=== PATIENT | female | born 1960 | race Hispanic/Latino ===

== ENCOUNTER 2019-08-20 13:42 | Emergency (ER) | payer SELFPAY ==
[2019-08-20 14:37] LABS: Absolute Lymphocytes (CBC) 2.2 K/uL (0.7-4.9); Basophils % 0.3 % (0-1.3); Hematocrit 39.7 % (36.0-45.0); Lymphocytes % 22.9 % (15.3-44.8); MPV 9.8 fL (7.6-11.3)
[2019-08-20 14:50] LABS: ALT/SGPT 25 U/L (12-78); AST/SGOT 15 U/L (15-37); Albumin 3.7 g/dL (3.4-5.0); Alkaline Phosphatase 112 U/L (45-117); BUN Blood Urea Nitrogen 14 mg/dL (7-18); Bicarbonate 25 mmol/L (21-32); Bilirubin Direct < 0.1 mg/dL (0-0.2); Bilirubin Total 0.3 mg/dL (0.2-1.0); Glucose Level 144 mg/dL (74-106); Lipase 105 U/L (73-393); Protein, Total 7.9 g/dL (6.4-8.2); Sodium Level 141 mmol/L (136-145)
[2019-08-20] MEDS ORDERED: NA CHLORIDE 0.9% 1,000 ML ONE (15:09)
[2019-08-20] MEDS ORDERED: FENTANYL CITR 100 MCG/2 ML ONE (15:09)
--- NOTE | 2019-08-20 15:19 | RAD REPORT ---
EXAM DESCRIPTION: CTAbdomen Pelvis W Contrast - 08/20/2019 3:05 pm CLINICAL HISTORY: Abdominal pain. ABD PAIN COMPARISON: No comparisons TECHNIQUE: Biphasic CT imaging of the abdomen and pelvis was performed with 100 ml non-ionic IV cont rast. All CT scans are performed using dose optimization technique as appropriate and may include automated exposure control or mA/KV adjustment according to patient size. FINDINGS: The lung bases are clear. The liver, spleen, pancreas, adrenal glands and kidneys are within normal limits. No bowel obstruction, free air, free fluid or abscess. Small fat containing umbilical hernia. The nita endix is normal. No evidence of significant lymphadenopathy. No suspicious bony findings. Tiny air bubbles noted in the urinary bladder. IMPRESSION: No acute intra-abdominal or pelvic finding. No evidence of appendicitis. Tiny urinary bladder air bubbles. Suggest correlation clinically for possible cystitis.
--- NOTE | 2019-08-20 16:03 | EDPHYS ---
Physician Documentation [facility] Name: Kenia Greenberg Age: 59 yrs Sex: Female : 1960 Arrival Date: 08/20/2019 Time: 13:46 Bed 15 Private MD: ED Physician Dayo Harvey HPI: 08/19 14:01 This 59 yrs old Female presents to ER via Ambulatory with complaints of snw Abdominal Pain. 14:01 The patient presents with abdominal pain in the lower abdomen. Onset: The snw symptoms/episode began/occurred acutely, 3 day(s) ago, and became persistent. The symptoms do not radiate. Associated signs and symptoms: Pertinent positives: nausea. The symptoms are described as steady. Severity of pain: At its worst the pain was moderate. The patient has been recently seen by a physician: the patient's primary care provider, with similar presenting complaints, and apparently given a diagnosis of Abd pain, sent to ED for eval for appendicitis. Historical: - Allergies: 14:02 No Known Allergies; ls4 - Immunization history:: Adult Immunizations up to date. - Social history:: Smoking status: Patient denies any tobacco usage or history of. ROS: 14:01 Constitutional: Negative for fever, chills, and weight loss, Eyes: Negative for injury, snw pain, redness, and discharge, ENT: Negative for injury, pain, and discharge, Neck: Negative for injury, pain, and swelling, Cardiovascular: Negative for chest pain, palpitations, and edema, Respiratory: Negative for shortness of breath, cough, wheezing, and pleuritic chest pain, Back: Negative for injury and pain, : Negative for injury, bleeding, discharge, and swelling, MS/Extremity: Negative for injury and deformity, Skin: Negative for injury, rash, and discoloration, Neuro: Negative for headache, weakness, numbness, tingling, and seizure. 14:01 Abdomen/GI: Positive for abdominal pain. Exam: 14:00 Constitutional: This is a well developed, well nourished patient who is awake, alert, snw and in no acute distress. Head/Face: Normocephalic, atraumatic. Eyes: Pupils equal round and reactive to light, extra-ocular motions intact. Lids and lashes normal. Conjunctiva and sclera are non-icteric and not injected. Cornea within normal limits. Periorbital areas with no swelling, redness, or edema. ENT: Nares patent. No nasal discharge, no septal abnormalities noted. Tympanic membranes are normal and external auditory canals are clear. Oropharynx with no redness, swelling, or masses, exudates, or evidence of obstruction, uvula midline. Mucous membranes moist. Neck: Trachea midline, no thyromegaly or masses palpated, and no cervical lymphadenopathy. Supple, full range of motion without nuchal rigidity, or vertebral point tenderness. No Meningismus. Chest/axilla: Normal chest wall appearance and motion. Nontender with no deformity. No lesions are appreciated. Cardiovascular: Regular rate and rhythm with a normal S1 and S2. No gallops, murmurs, or rubs. Normal PMI, no JVD. No pulse deficits. Respiratory: Lungs have equal breath sounds bilaterally, clear to auscultation and percussion. No rales, rhonchi or wheezes noted. No increased work of breathing, no retractions or nasal flaring. Back: No spinal tenderness. No costovertebral tenderness. Full range of motion. Skin: Warm, dry with normal turgor. Normal color with no rashes, no lesions, and no evidence of cellulitis. MS/ Extremity: Pulses equal, no cyanosis. Neurovascular intact. Full, normal range of motion. Neuro: Awake and alert, GCS 15, oriented to person, place, time, and situation. Cranial nerves II-XII grossly intact. Motor strength 5/5 in all extremities. Sensory grossly intact. Cerebellar exam normal. Normal gait. Psych: Awake, alert, with orientation to person, place and time. Behavior, mood, and affect are within normal limits. 14:00 Abdomen/GI: Inspection: abdomen appears normal, obese Bowel sounds: normal, Palpation: moderate abdominal tenderness, in the right lower quadrant and left lower quadrant. Vital Signs: 14:25 BP 126 / 70; Pulse 80; Resp 16; Temp 97.6(TE); Pulse Ox 98% ; lt1 MDM: 13:57 Patient medically screened. snw 16:08 Data reviewed: vital signs, nurses notes, lab test result(s), radiologic studies, CT snw scan. Data interpreted: Pulse oximetry: on room air is 98 %. Interpretation: normal. Counseling: I had a detailed discussion with the patient and/or guardian regarding: the historical points, exam findings, and any diagnostic results supporting the discharge/admit diagnosis, lab results, radiology results, the need for outpatient follow up, to return to the emergency department if symptoms worsen or persist or if there are any questions or concerns that arise at home. Special discussion: Based on the patient's Hx, exam, and Dx evaluation, there is no indication for emergent surgery or inpatient Tx. It is understood by the patient/guardian that if the Sx's persist or worsen they need to return immediately for re-evaluation. Based on the history and exam findings, there is no indication for further emergent testing or inpatient evaluation. I discussed with the patient/guardian the need to see the primary care provider for further evaluation of the symptoms. 08/19 14:00 Order name: Basic Metabolic Panel; Complete Time: 15:23 w 08/19 14:00 Order name: CBC with Diff; Complete Time: 15:23 w 08/19 14:00 Order name: Creatinine for Radiology; Complete Time: 15:23 w 08/19 14:00 Order name: Hepatic Function; Complete Time: 15:23 w 08/19 14:00 Order name: Lipase; Complete Time: 15:23 08/19 15:49 Order name: Urine Culture 08/19 14:00 Order name: IV Saline Lock; Complete Time: 14:18 w 08/19 14:00 Order name: Labs collected and sent; Complete Time: 14:18 w 08/19 14:00 Order name: CT Abd/Pelvis - IV Contrast Only; Complete Time: 15:23 08/19 15:49 Order name: Misc. Order: change IVF rate to bolus; Complete Time: 15:59 snw Administered Medications: 15:21 Drug: NS 0.9% 1000 ml Route: IV; Rate: 125 ml/hr; Site: left antecubital; ca1 15:22 Drug: fentaNYL (PF) 25 mcg {Note: RASS - 0.} Route: IVP; Site: left antecubital; ca1 15:52 Follow up: Response: No adverse reaction; Marked relief of symptoms ls4 16:04 Drug: Rocephin 1 grams Route: IV; Rate: calculated rate; Site: left antecubital; ls4 Disposition: 18:26 Co-signature as Attending Physician, Dayo Harvey MD. rn Disposition: 08/20/19 16:02 Discharged to Home. Impression: Urinary tract infection, site not specified. - Condition is Stable. - Discharge Instructions: Abdominal Pain, Adult, Urinary Tract Infection, Adult, Rehydration, Adult. - Prescriptions for Augmentin 875- 125 mg Oral Tablet - take 1 tablet by ORAL route every 12 hours for 10 days; 20 tablet. promethazine 25 mg Oral Tablet - take 1 tablet by ORAL route every 6 hours As needed; 20 tablet. - Medication Reconciliation Form, Thank You Letter, Antibiotic Education, Prescription Opioid Use form. - Follow up: Private Physician; When: 2 - 3 days; Reason: Recheck today's complaints, Continuance of care, Re-evaluation by your physician. Follow up: Emergency Department; When: As needed; Reason: Recheck today's complaints, Continuance of care, Re-evaluation by your physician. Signatures: Dispatcher [employer] EDMS Karla Saldaña, MIDWIFE-C MIDWIFE-Csnw Dayo Harvey MD MD rn Park Matta RN RN ls4 Marita Ruffin RN RN ca1 Corrections: (The following items were deleted from the chart) 17:19 16:02 08/20/2019 16:02 Discharged to Home. Impression: Urinary tract infection, site ls4 not specified. Condition is Stable. Forms are Medication Reconciliation Form, Thank You Letter, Antibiotic Education, Prescription Opioid Use. Follow up: Private Physician; When: 2 - 3 days; Reason: Recheck today's complaints, Continuance of care, Re-evaluation by your physician. Follow up: Emergency Department; When: As needed; Reason: Recheck today's complaints, Continuance of care, Re-evaluation by your physician. snw
--- NOTE | 2019-08-20 16:03 | ER ---
Nurse's Notes [facility] Name: Kenia Greenberg Age: 59 yrs Sex: Female : 1960 Arrival Date: 08/20/2019 Time: 13:46 Bed 15 Private MD: Diagnosis: Urinary tract infection, site not specified Presentation: 08/19 13:59 Chief complaint: Patient states: WAS SENT FROM [facility] WITH ACUTE ABDOMINAL ls4 RULE OUT APPENDICITIS. Coronavirus screen: Proceed with normal triage. Patient denies a cough. Patient denies shortness of breath or difficulty breathing. Patient denies measured and/or subjective temperature greater than 100.4F prior to today's visit. Patient denies travel on a cruise ship or to a country the [facility] currently lists as an affected area. Patient denies contact with known and/or suspected case of COVID-19. Ebola Screen: No symptoms or risks identified at this time. Initial Sepsis Screen: Does the patient meet any 2 criteria? No. Patient's initial sepsis screen is negative. Does the patient have a suspected source of infection? No. Patient's initial sepsis screen is negative. Risk Assessment: Do you want to hurt yourself or someone else? Patient reports no desire to harm self or others. Onset of symptoms is unknown. Care prior to arrival: None. Activity prior to arrival: None. 13:59 Method Of Arrival: Ambulatory ls4 13:59 Acuity: TRACY 3 ls4 Triage Assessment: 14:02 General: Appears in no apparent distress. comfortable, Behavior is calm, cooperative. ls4 Historical: - Allergies: 14:02 No Known Allergies; ls4 - Immunization history:: Adult Immunizations up to date. - Social history:: Smoking status: Patient denies any tobacco usage or history of. Screenin:04 Abuse screen: Denies threats or abuse. Denies injuries from another. Nutritional ls4 screening: No deficits noted. Tuberculosis screening: No symptoms or risk factors identified. Fall Risk None identified. Vital Signs: 14:25 BP 126 / 70; Pulse 80; Resp 16; Temp 97.6(TE); Pulse Ox 98% ; lt1 ED Course: 13:46 Patient arrived in ED. ag5 13:56 Karla Saldaña F[facility]-C [facility]. snw 13:56 Dayo Harvey MD is Attending Physician. snw 13:59 Park Matta, RN is Primary Nurse. ls4 14:01 Triage completed. ls4 14:02 Arm band placed on. ls4 14:04 Patient has correct armband on for positive identification. Bed in low position. Call ls4 light in reach. Side rails up X 1. Pulse ox on. NIBP on. Warm blanket given. Verbal reassurance given. Diet: Patient is NPO. 14:04 No provider procedures requiring assistance completed. Patient maintains SpO2 ls4 saturation greater than 95% on room air. 14:18 Missed attempt(s): 22 gauge in right antecubital area. lt1 14:18 Initial lab(s) drawn, by me, sent to lab. Inserted saline lock: 22 gauge in left lt1 antecubital area, using aseptic technique. 15:05 CT Abd/Pelvis - IV Contrast Only In Process Unspecified. EDMS 16:18 Urine Culture Sent. ca1 Administered Medications: 15:21 Drug: NS 0.9% 1000 ml Route: IV; Rate: 125 ml/hr; Site: left antecubital; ca1 15:22 Drug: fentaNYL (PF) 25 mcg {Note: RASS - 0.} Route: IVP; Site: left antecubital; ca1 15:52 Follow up: Response: No adverse reaction; Marked relief of symptoms ls4 16:04 Drug: Rocephin 1 grams Route: IV; Rate: calculated rate; Site: left antecubital; ls4 Outcome: 16:02 Discharge ordered by . snw 17:19 Patient left the ED. ls4 Signatures: Dispatcher [employer] EDMS Karla Saldaña, COLOR TESTER-C COLOR TESTER-Csnw Park Matta, RN RN ls4 Marita Ruffin RN RN ca1 Dex Pappas Imani Cerda lt1
[2019-08-20] MEDS ORDERED: CEFTRIAXONE/SWI 1gm 1 GM/10 ML SYR ONE (16:09)
[2019-08-20 17:26] VITALS: BP 126/70; TEMP 97.6; O2SAT 98
== END 2019-08-20 17:19 | disposition home or self-care (01) ==
LOC: ER 13:42
DX: N39.0 Urinary tract infection, site not specified (principal)
CPT/HCPCS: 36415; 74177; 80048; 80076; 83690; 85025; 87086; 87088; 96374; 96375; 99284; J0696; J3010; J7030; Q9967